=== PATIENT | female | born 1995 | race American Indian/Alaskan Native ===

== ENCOUNTER 2017-12-14 17:11 | Emergency (ER) | payer SELFPAY ==
[2017-12-14 18:09] LABS: Bacteria,Urine 1+ /HPF (Negative); Bilirubin,Urine NEG (Negative); Blood,Urine NEG (Negative); Color,Urine Yellow (Yellow); Mucus,Urine 3+ /HPF
[2017-12-14 19:49] LABS: Basophils % (Auto) 0.6 % (0.0-1.8); Eosinophils % (Auto) 0.5 % (0.0-4.3); Hematocrit 40.3 % (30.3-42.9); Hemoglobin 13.3 gm/dl (10.1-14.3); Lymphocytes # (Auto) 1.9 K/mm3 (1.2-5.4); Lymphocytes % (Auto) 25.3 % (13.4-35.0); Mean Corpuscular HGB Conc 33 % (30-34); Mean Corpuscular Volume 72 fl (79-97); Monocytes # (Auto) 0.7 K/mm3 (0.0-0.8); Monocytes % (Auto) 8.8 % (0.0-7.3); Platelet Count 188 K/mm3 (140-440); Red Blood Count 5.58 M/mm3 (3.65-5.03); Red Cell Distribution Width 15.5 % (13.2-15.2)
[2017-12-14 19:54] LABS: Mean Corpuscular Hemoglobin 24 pg (28-32)
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
[2017-12-15 03:02] VITALS: BP 134/94
== END 2017-12-15 02:30 | disposition home or self-care (01) ==
LOC: ED 17:11
DX: N39.0 Urinary tract infection, site not specified (principal); F17.200 Nicotine dependence, unspecified, uncomplicated
CPT/HCPCS: 36415; 81001; 84702; 85025; 99283

== ENCOUNTER 2018-02-06 15:37 | Emergency (ER) | payer OTHER ==
[2018-02-06 15:42] VITALS: BP 140/91
[2018-02-06 16:13] LABS: HCG Qualitative,Urine Negative (Negative)
[2018-02-06] MEDS ORDERED: MOTRIN PO ONE (17:16)
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
== END 2018-02-06 18:15 | disposition home or self-care (01) ==
LOC: ED 15:37
DX: S39.012A Strain of muscle, fascia and tendon of lower back, initial encounter (principal); V49.59XA Passenger injured in collision with other motor vehicles in traffic accident, initial encounter; Y93.89 Activity, other specified; Y99.8 Other external cause status; Y92.488 Other paved roadways as the place of occurrence of the external cause
CPT/HCPCS: 72070; 72100; 81025

== ENCOUNTER 2020-03-20 14:20 | Emergency (ER) | payer SELFPAY ==
[2020-03-20 14:38] VITALS: BP 144/96
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
== END 2020-03-20 16:33 | disposition home or self-care (01) ==
LOC: ED 14:20
DX: J02.0 Streptococcal pharyngitis (principal); I10 Essential (primary) hypertension; F17.200 Nicotine dependence, unspecified, uncomplicated; Z79.899 Other long term (current) drug therapy
CPT/HCPCS: 99282